=== PATIENT | male | born 1975 | race Hispanic/Latino ===

== ENCOUNTER → 2017-03-20 | Outpatient (CLI) | payer OTHER | END | disposition home or self-care (01) | LOC: NUC 06:52 | DX: R14.0 Abdominal distension (gaseous) (principal); R10.13 Epigastric pain; R19.7 Diarrhea, unspecified | CPT/HCPCS: 78264; A9541 ==

== ENCOUNTER → 2017-04-02 | Outpatient (CLI) | payer OTHER ==
[~2017-04-02] VITALS: Ht 167.6 cm; Wt 92.5 kg
[~2017-04-02] MED LIST: METFORMIN HCL500 MG PO; MULTIPLE VITAM1 EACH PO; OMEGA-31000 M1 PO; PRAVACHOL40 MG PO
[2017-04-02 11:07] LABS: POINT-OF-CARE METER ID UU14174212
[2017-04-02 13:00] LABS: POINT-OF-CARE METER ID UU13113819; POINT-OF-CARE USER ID 515036437
== END | disposition home or self-care (01) ==
LOC: AMB 09:56
PROVIDERS: Internal Medicine Gastroenterology
DX: R10.13 Epigastric pain (principal); R14.0 Abdominal distension (gaseous); R19.7 Diarrhea, unspecified; B96.81 Helicobacter pylori [H. pylori] as the cause of diseases classified elsewhere; E11.9 Type 2 diabetes mellitus without complications; R74.8 Abnormal levels of other serum enzymes; D56.1 Beta thalassemia; E78.5 Hyperlipidemia, unspecified; R76.11 Nonspecific reaction to tuberculin skin test without active tuberculosis; F17.200 Nicotine dependence, unspecified, uncomplicated; E66.9 Obesity, unspecified; Z68.34 Body mass index [BMI] 34.0-34.9, adult; L40.50 Arthropathic psoriasis, unspecified; F10.21 Alcohol dependence, in remission; Z83.3 Family history of diabetes mellitus; Z84.0 Family history of diseases of the skin and subcutaneous tissue; Z79.84 Long term (current) use of oral hypoglycemic drugs
CPT/HCPCS: 82948; 88305; 88342 TC; 93005; J2250; J3010